=== PATIENT | male | born 1985 | race Hispanic/Latino ===

== ENCOUNTER 2024-07-14 15:05 | Inpatient (IN) | payer SELFPAY ==
[~2024-07-14 15:05] MED LIST: Iopamidol-370 76% 500 ML MDV (1 ML CHARGE) ONE
[2024-07-14] MEDS ORDERED: Ondansetron PF 4 MG/2 ML Vial ONE (15:55)
[2024-07-14 16:08] LABS: #Basophils 0.07 10x3/uL (0.0-0.2); %Basophils 0.3 % (0.0-1.0); %Eosinophils 0.2 % (0.0-10.0); %Lymphocytes 8.7 % (21.0-51.0); %Monocytes 4.3 % (0.0-10.0); %Neutrophils 85.7 % (42.0-75.0); Hematocrit 33.3 % (42.0-52.0); Hemoglobin 12.3 g/dL (14.0-18.0); Mean Corpuscular HGB CONC 36.9 g/dL (32.0-36.0); Mean Corpuscular Hemoglobin 31.5 pg (27.0-31.0); Mean Corpuscular Volume 85.2 fL (78.0-98.0); Mean Platelet Volume 10.1 fL (7.4-10.4); Platelet Count 373 10x3/uL (130-400); RBC Distribution Width 12.9 % (11.5-14.5); Red Blood Cell (RBC) Count 3.91 mill/uL (4.70-6.10)
[2024-07-14 16:25] LABS: ALT (SGPT) 94 U/L (8-55); AST (SGOT) 298 U/L (5-34); Albumin 3.6 g/dL (3.5-5.0); Alkaline Phosphatase 1111 U/L (40-110); Anion Gap 20 mmol/L (10-20); BUN (Urea Nitrogen) 4 mg/dL (8.9-20.6); Bilirubin, Total 3.4 mg/dL (0.2-1.2); Calc. Creatinine Clearance 0 mL/min (70-130); Calcium 9.7 mg/dL (7.8-10.44); Carbon Dioxide 24 mmol/L (22-29); Chloride 94 mmol/L (98-107); Estimated GFR 95; Globulin 4.5 g/dL (2.4-3.5); Glucose 331 mg/dL (70-105); Lipase 6 U/L (8-78); Magnesium 1.8 mg/dL (1.6-2.6); Potassium 3.6 mmol/L (3.5-5.1); Protein, Total 8.1 g/dL (6.0-8.3); Sodium 134 mmol/L (136-145)
[2024-07-14 16:53] LABS: Actual Bicarbonate (HCO3v) 22.7 mEq/L (22-28); Analyzer IN Cardio ER; Base Excess -0.6 mEq/L (-2.0 to +3.0); Calcium, Ionized (venous) 1.14 mmol/L (1.16-1.32); Chloride (VBG) 94 mmol/L (98-106); Hematocrit-VBG 39 % (42.0-52.0); Hemoglobin (Hb) 13.2 g/dL (13.2-17.3); Potassium (VBG) 3.55 mmol/L (3.70-5.30); Sodium 137 mmol/L (133-146); pH (venous) 7.449 (7.32-7.43)
[2024-07-14] MEDS ORDERED: Sodium Chloride 0.9% 100 ML ONE (17:14)
[2024-07-14] MEDS ORDERED: Cefepime 2 GM VIAL ONE (17:14)
[2024-07-14] MEDS ORDERED: Vancomycin 1 GM/200 ML (FROZEN) BAG ONE (17:21)
[2024-07-14] MEDS ORDERED: Acetaminophen 325 MG TAB ONE (17:21)
[2024-07-14 17:43] LABS: Prothrombin Time 13.1 sec (12.0-14.7)
[2024-07-14 17:44] LABS: PTT 24.8 sec (22.9-36.1)
[2024-07-14 17:54] LABS: HBCM Index 0.19 S/CO (0-0.79); HBsAg Index 0.27 S/CO (0-0.99); Hep A IgM AB NONREACTIVE (NonReactive); Hep A IgM S/CO 0.46 S/CO (0-0.79); Hep B Surf Ag NONREACTIVE S/CO (NonReactive); Hep C IgG Ab NONREACTIVE S/CO (NonReactive); Hep C Index 0.18 S/CO (0-0.79); Hepatitis B Core IgM Abs NONREACTIVE S/CO (NonReactive)
[2024-07-14 18:07] LABS: Acetaminophen Less than 10 mcg/mL (Less than 10); Alcohol 90.3 mg/dL (Less than 10); Salicylate Less than 8.0 mg/dL (Less than 8.0)
[2024-07-14] MEDS ORDERED: Dextrose 50% Abboject 50 ML SYRINGE SLOW IVP PRN (18:09)
[2024-07-14] MEDS ORDERED: Lorazepam 2 MG/ML VIAL IM PRN (18:09)
[2024-07-14] MEDS ORDERED: Glucagon 1 MG/ML KIT IM PRN (18:09)
[2024-07-14] MEDS ORDERED: Dextrose 5% in Water 1,000 ML IV PRN (18:09)
[2024-07-14] MEDS ORDERED: Electrolyte Replacement Protocol 1 EACH FS SCH (18:15)
[2024-07-14 18:56] LABS: Lactic Acid 3.06 mmol/L (0.5-2.2)
[2024-07-14] MEDS ORDERED: Electrolyte Replacement Protocol FS PRN (20:30)
[2024-07-14 20:53] LABS: Bacteria/HPF None Seen HPF (None Seen); Bilirubin Negative (Negative); Blood, Urine Negative (Negative); Clarity Clear (Clear); Glucose, Urine (Dipstick) Greater than 1000 mg/dL (Negative); Ketone, Urine 20 mg/dL (Negative); Leukocyte Negative Leu/uL (Negative); Nitrite Negative (Negative); Protein, Urine (Dipstick) Negative (Neg-Trace); RBC/HPF 0-3 HPF (0-3); Specific Gravity, Urine 1.025 (1.002-1.036); Squamous Epithelial None Seen HPF (0-3); Urobilinogen Normal mg/dL (Less than 2); WBC/HPF 0-3 HPF (0-3)
[2024-07-14 20:56] LABS: Amphetamine Not Detected (NotDetected); Barbiturates Screen Not Detected (NotDetected); Benzodiazepine Screen Not Detected (NotDetected); Cocaine Metabolite Screen Not Detected (NotDetected); Methadone Not Detected (NotDetected); Methamphetamine Not Detected (NotDetected); Opiate Screen Not Detected (NotDetected); Oxycodone Screen Not Detected (NotDetected); Phencyclidine (PCP) Not Detected (NotDetected); THC/Cannabinoid Screen Not Detected (NotDetected); Tricyclic Screen Not Detected (NotDetected)
[2024-07-14] MEDS ORDERED: Lorazepam 1 MG TAB PO PRN (21:00)
[2024-07-14] MEDS ORDERED: Vancomycin HCl 750 MG in Sodium Chloride 0.9% 250 ML 250 ML IVPB SCH (21:00)
[2024-07-14] MEDS: Lactated Ringer's 1,000 ML IV SCH (21:04)
[2024-07-14] MEDS: Thiamine HCl 200 MG/2 ML VIAL SLOW IVP SCH (21:05)
[2024-07-14] MEDS: Insulin Glargine 30 UNITS/0.3 ML VIAL SC SCH (21:05)
[2024-07-14] MEDS: Insulin Lispro 100 UNIT/ML 10 ML VIAL SC PRN (21:05)
[2024-07-14] MEDS: Magnesium 2 GM/50 ML(in water) 2 GM in Premix 1 BAG IVPB SCH (22:52)
[2024-07-15] MEDS: Acetaminophen 325 MG TAB PO PRN (00:37)
[2024-07-15] MEDS: Vancomycin 1 GM in Premix 1 BAG IVPB SCH (00:37)
[2024-07-15] MEDS: Cefepime 2 GM in Sodium Chloride 0.9% 100 ML IVPB SCH (02:35)
[2024-07-15 06:14] LABS: #Basophils 0.04 10x3/uL (0.0-0.2); %Basophils 0.4 % (0.0-1.0); %Eosinophils 1.9 % (0.0-10.0); %Lymphocytes 11.1 % (21.0-51.0); Hematocrit 33.5 % (42.0-52.0); Hemoglobin 11.8 g/dL (14.0-18.0); Mean Corpuscular HGB CONC 35.2 g/dL (32.0-36.0); Mean Corpuscular Hemoglobin 31.1 pg (27.0-31.0); Mean Corpuscular Volume 88.2 fL (78.0-98.0); Mean Platelet Volume 10.1 fL (7.4-10.4); Platelet Count 295 10x3/uL (130-400); RBC Distribution Width 13.2 % (11.5-14.5)
[2024-07-15 06:30] LABS: Vancomycin, Random 20.8 ug/mL (See Comment)
[2024-07-15 06:33] LABS: ALT (SGPT) 100 U/L (8-55); AST (SGOT) 340 U/L (5-34); Albumin 2.8 g/dL (3.5-5.0); Alkaline Phosphatase 891 U/L (40-110); Anion Gap 12 mmol/L (10-20); BUN (Urea Nitrogen) 5 mg/dL (8.9-20.6); Bilirubin, Total 2.8 mg/dL (0.2-1.2); Calc. Creatinine Clearance 118 mL/min (70-130); Calcium 9.2 mg/dL (7.8-10.44); Carbon Dioxide 32 mmol/L (22-29); Chloride 95 mmol/L (98-107); Estimated GFR 113; Globulin 3.7 g/dL (2.4-3.5); Glucose 162 mg/dL (70-105); Potassium 4.1 mmol/L (3.5-5.1); Protein, Total 6.5 g/dL (6.0-8.3); Sodium 135 mmol/L (136-145)
[2024-07-15] MEDS ORDERED: Vancomycin (BATCH) 1.25 GM in Premix 1 BAG IVPB SCH ×2 (09:00→21:00)
[2024-07-15] MEDS: Folic Acid 1 MG TAB PO SCH (09:17)
[2024-07-15] MEDS: Multivit, Therapeutic 1 TAB PO SCH (09:17)
[2024-07-15] MEDS ORDERED: Magnevist 469MG/ML 20 ML VIAL ONE (14:26)
[2024-07-15] MEDS: Piperacillin/Tazobactam 3.375 GM in Sodium Chloride 0.9% 100 ML IVPB SCH ×2 (15:36→21:31)
[2024-07-15 15:40] LABS: Hemoglobin A1c Greater than 14.0 % (4.0-6.0)
[2024-07-15] MEDS ORDERED: Piperacillin/Tazobactam 4.5 GM in Sodium Chloride 0.9% 100 ML IVPB SCH (18:00)
[2024-07-15] MEDS ORDERED: Lorazepam 1 MG TAB PO PRN (21:00)
[2024-07-15] MEDS: Insulin Glargine 30 UNITS/0.3 ML VIAL SC SCH (21:30)
[2024-07-15] MEDS: Insulin Lispro 100 UNIT/ML 10 ML VIAL SC PRN (22:04)
[2024-07-16 05:59] LABS: #Basophils 0.06 10x3/uL (0.0-0.2); %Basophils 0.9 % (0.0-1.0); %Eosinophils 2.7 % (0.0-10.0); %Lymphocytes 20.3 % (21.0-51.0); %Monocytes 9.3 % (0.0-10.0); %Neutrophils 65.5 % (42.0-75.0); Hematocrit 37.7 % (42.0-52.0); Hemoglobin 12.5 g/dL (14.0-18.0); Mean Corpuscular HGB CONC 33.2 g/dL (32.0-36.0); Mean Corpuscular Hemoglobin 30.8 pg (27.0-31.0); Mean Corpuscular Volume 92.9 fL (78.0-98.0); Mean Platelet Volume 10.3 fL (7.4-10.4); Platelet Count 287 10x3/uL (130-400); RBC Distribution Width 13.4 % (11.5-14.5); Red Blood Cell (RBC) Count 4.06 mill/uL (4.70-6.10)
[2024-07-16 06:21] LABS: Anion Gap 11 mmol/L (10-20); BUN (Urea Nitrogen) 7 mg/dL (8.9-20.6); Calc. Creatinine Clearance 100 mL/min (70-130); Calcium 9.4 mg/dL (7.8-10.44); Carbon Dioxide 31 mmol/L (22-29); Chloride 100 mmol/L (98-107); Estimated GFR 95; Glucose 188 mg/dL (70-105); Potassium 4.3 mmol/L (3.5-5.1); Sodium 138 mmol/L (136-145)
[2024-07-16 06:31] LABS: ALT (SGPT) 71 U/L (8-55); AST (SGOT) 78 U/L (5-34); Albumin 2.8 g/dL (3.5-5.0); Alkaline Phosphatase 719 U/L (40-110); Bilirubin, Total 1.9 mg/dL (0.2-1.2); Protein, Total 6.4 g/dL (6.0-8.3)
[2024-07-16] MEDS ORDERED: Midazolam HCl 2 mg/2 ml Vial ONE (07:23)
[2024-07-16] MEDS ORDERED: PROPOFOL 20 ML ONE (07:23)
[2024-07-16] MEDS ORDERED: fentaNYL PF 100 MCG/2 ML SYRINGE ONE (07:23)
[2024-07-16] MEDS ORDERED: Dexamethasone 4 mg/ml Vial ONE (07:26)
[2024-07-16] MEDS ORDERED: Ondansetron PF 4 MG/2 ML Vial ONE (07:26)
[2024-07-16] MEDS ORDERED: Rocuronium Bromide 10 MG/ML (10ML VIAL) ONE (07:26)
[2024-07-16] MEDS ORDERED: Lidocaine 1% PF 5 ML VIAL ONE (07:26)
[2024-07-16] MEDS ORDERED: SUGAMMADEX SODIUM 200 MG/2 ML VIAL ONE (07:27)
[2024-07-16] MEDS ORDERED: Indomethacin 50 MG SUPP ONE (07:38)
[2024-07-16] MEDS ORDERED: Iopamidol 30 ML ONE (07:40)
[2024-07-16] MEDS: Ondansetron ODT 4 MG TAB PO PRN (14:16)
[2024-07-16] MEDS: oxyCODONE 5 MG TAB PO PRN (14:43)
[2024-07-16] MEDS: Acetaminophen 500 MG TAB PO PRN (18:47)
[2024-07-16] MEDS ORDERED: Lorazepam 1 MG TAB PO PRN (21:00)
[2024-07-17 06:25] LABS: #Basophils 0.07 10x3/uL (0.0-0.2); %Basophils 0.9 % (0.0-1.0); %Eosinophils 2.1 % (0.0-10.0); %Lymphocytes 23.3 % (21.0-51.0); %Monocytes 7.5 % (0.0-10.0); %Neutrophils 65.2 % (42.0-75.0); Hematocrit 36.3 % (42.0-52.0); Hemoglobin 12.1 g/dL (14.0-18.0); Mean Corpuscular HGB CONC 33.3 g/dL (32.0-36.0); Mean Corpuscular Hemoglobin 30.9 pg (27.0-31.0); Mean Corpuscular Volume 92.6 fL (78.0-98.0); Mean Platelet Volume 10.2 fL (7.4-10.4); Platelet Count 314 10x3/uL (130-400); RBC Distribution Width 13.1 % (11.5-14.5); Red Blood Cell (RBC) Count 3.92 mill/uL (4.70-6.10)
[2024-07-17 06:39] LABS: ALT (SGPT) 46 U/L (8-55); AST (SGOT) 39 U/L (5-34); Albumin 2.5 g/dL (3.5-5.0); Alkaline Phosphatase 554 U/L (40-110); Anion Gap 12 mmol/L (10-20); BUN (Urea Nitrogen) 6 mg/dL (8.9-20.6); Bilirubin, Direct 0.9 mg/dL (0.1-0.3); Bilirubin, Total 1.8 mg/dL (0.2-1.2); Calc. Creatinine Clearance 113 mL/min (70-130); Calcium 8.6 mg/dL (7.8-10.44); Carbon Dioxide 27 mmol/L (22-29); Chloride 98 mmol/L (98-107); Estimated GFR 110; Glucose 210 mg/dL (70-105); Lipase Less than 4 U/L (8-78); Potassium 3.5 mmol/L (3.5-5.1); Protein, Total 5.5 g/dL (6.0-8.3); Sodium 133 mmol/L (136-145)
[2024-07-17] MEDS: Potassium Chloride 20 MEQ TAB PO SCH (09:16)
[2024-07-17 16:38] VITALS: BP 114/77; TEMP 98.3
[2024-07-17] MEDS ORDERED: Lorazepam 0.5 MG TAB PO PRN (21:00)
[2024-07-17] MEDS ORDERED: Thiamine 100 MG TAB PO SCH (21:00)
[2024-07-17] MEDS ORDERED: Insulin Glargine 30 UNITS/0.3 ML VIAL SC SCH (21:00)
== END 2024-07-17 18:14 | disposition home or self-care (01) | DRG 445 ==
LOC: ERS 15:05 → T4-A 18:56 → OBSVTOIN 18:56
PROVIDERS: ADMIT Family Medicine; ATTEND Family Medicine
PROC: 0FC98ZZ Extirpation of Matter from Common Bile Duct, Via Natural or Artificial Opening Endoscopic (ICD-10-PCS; principal; 2024-07-16)
PROC: 0F798DZ Dilation of Common Bile Duct with Intraluminal Device, Via Natural or Artificial Opening Endoscopic (ICD-10-PCS; 2024-07-16)
PROC: 0FD98ZX Extraction of Common Bile Duct, Via Natural or Artificial Opening Endoscopic, Diagnostic (ICD-10-PCS; 2024-07-16)
DX: K80.42 Calculus of bile duct with acute cholecystitis without obstruction (principal); E87.20 Acidosis, unspecified; D64.9 Anemia, unspecified; K86.89 Other specified diseases of pancreas; E11.65 Type 2 diabetes mellitus with hyperglycemia; K70.10 Alcoholic hepatitis without ascites; Z71.41 Alcohol abuse counseling and surveillance of alcoholic; Z53.29 Procedure and treatment not carried out because of patient's decision for other reasons; Z79.1 Long term (current) use of non-steroidal anti-inflammatories (NSAID)
CPT/HCPCS: 36415; 36416; 71045; 74177; 74183; 74330; 76376; 76705; 80048; 80053; 80074; 80076; 80143; 80179; 80202; 80306; 80307; 81001; 82010; 82550; 82805; 83036; 83605; 83690; 83735; 85025; 85610; 85730; 87040; 88112; 88305; 93005; 94760; 96374; 96375; A9579; C1725; C2625; J0692; J1100; J1815; J2250; J2405; J2543; J2704; J3370-JW; J3411; J3475; J7120; Q0162; Q9967